=== PATIENT | female | born 1975 | race Caucasian/White ===

== ENCOUNTER 2020-06-20 18:56 | Emergency (ER) | payer BC, MEDICAID ==
[2020-06-20 19:09] VITALS: O2SAT 100
[2020-06-20] MEDS ORDERED: Sodium Chloride 0.9% 1000 ML 1,000 ML IV STA (19:09)
[2020-06-20] MEDS ORDERED: MORPHINE SULFATE 4 MG INJ IV ONE (19:09)
[2020-06-20] MEDS ORDERED: Zofran 4 MG/2 ML VIAL IV ONE (19:09)
[2020-06-20] MEDS ORDERED: Adacel Vial IM ONE ×2 (19:09→19:24)
[2020-06-20] MEDS ORDERED: CLINDAMYCIN-D5W 900 MG/50 ML*** 900 MG/50 ML BAG IV STA (19:18)
[2020-06-20] MEDS ORDERED: MORPHINE SULFATE 4 MG INJ ONE (19:23)
[2020-06-20] MEDS ORDERED: Zofran 4 MG/2 ML VIAL ONE (19:23)
[2020-06-20] MEDS ORDERED: Sodium Chloride 0.9% 1000 ML 1,000 ML ONE (19:24)
[2020-06-20] MEDS ORDERED: CLINDAMYCIN-D5W 900 MG/50 ML*** 900 MG/50 ML BAG IV ONE (19:24)
[2020-06-20] MEDS ORDERED: VANCOMYCIN 1 GRAM/200 ML BAG 1 GM/200 ML PIGGYBACK IV SCH (19:30)
[2020-06-20 19:49] LABS: Absolute Neutrophil Ct (ANC) 4.22 (1.4-6.9); BASOPHIL % 0.8 % (0.0-0.4); Basophil (Absolute #) 0.06 (0-0.4); Eosinophil % 6.1 % (0.00-5.0); Eosinophil (Absolute #) 0.49 (0-0.5); Hematocrit 38.3 % (35-47); Hemoglobin 12.4 gm/dl (12.0-16.0); Lymphocyte (Absolute #) 2.62 (1.0-4.6); Lymphocytes % 32.8 % (24.0-44.0); Mean Cell Volume 96.7 fl (78-100); Mean Corpuscular Hemoglobin 31.3 pg (26-32); Mean Corpuscular Hgb Concent. 32.4 g/dl (32-36); Mean Platelet Volume 10.1 fl (7.5-11.0); Monocyte (Absolute #) 0.59 (0.0-1.3); Monocytes % 7.4 % (0.0-12.0); Neutrophil % 52.9 % (36.0-66.0); Platelet Count 377 K/mm3 (150-450); Red Blood Count 3.96 M/mm3 (4.1-5.4); Red Cell Distribution Width 12.7 % (11.5-14.0)
[2020-06-20 19:51] LABS: ALBUMIN 4.5 g/dL (3.5-5.0); ALKALINE PHOSPHATASE 85 U/L (38-126); BLOOD UREA NITROGEN 14 mg/dL (7-17); CHLORIDE 101 mmol/L (98-107); Calcium 9.8 mg/dL (8.4-10.2); Carbon Dioxide 29 mmol/L (22-30); Creatinine 1 0.79 mg/dL (0.52-1.04); EST GLOMERULAR FILTRATION RATE > 60.0 ML/MIN; Glucose 104 mg/dL (74-106); Potassium 4.3 mmol/L (3.5-5.1); SGOT/AST 37 U/L (14-36); SGPT/ALT 30 U/L (0-35); SODIUM 138 mmol/L (137-145); Total Protein 8.1 g/dL (6.3-8.2)
[2020-06-20] MEDS ORDERED: VANCOMYCIN 1 GRAM/200 ML BAG 1 GM/200 ML PIGGYBACK IV ONE (20:48)
[2020-06-20 22:14] LABS: Appearance CLEAR (CLEAR); Bilirubin NEGATIVE (NEGATIVE); Blood NEGATIVE Ery/ul (0-5); Epithelial Cells RARE /HPF (FEW); Glucose NEGATIVE (NEGATIVE); Ketones NEGATIVE (NEGATIVE); Leukocyte Esterase NEGATIVE (NEGATIVE); Mucus SLIGHT /HPF (NEGATIVE); Nitrite NEGATIVE (NEGATIVE); Protein,Urine Dip NEGATIVE (Negative); RBC 0-2 /HPF (0-2); Urobilinogen NEGATIVE mg/dL (0-1)
--- NOTE | 2020-06-20 22:17 | ERPHSYRPT ---
- History of Present Illness Time Seen by Provider: 06/20/20 19:15 Source: patient Exam Limitations: no limitations Patient Subjective Stated Complaint: pt c/o pain to lt lower leg Triage Nursing Assessment: pt c/o pain to lt lower ext, red, warm to touch, open area 1.2cm L x 1.6 cm W 0.1 cm D, wound is not draining, edematous. Pt was mowing and cleaning up an area by a barn, and got cocka burrs in her pants and leg. Physician History: Patient is a 44-year-old female who presents with a complaint of severe pain in her left leg lower leg which occurred while she was working in the yard and some cocklebur's apparently got down in her socks and caused some lesions. This started approximately 3 days ago she is crying and nauseated with the pain from these lesions the largest lesion measures 1.2 x 1.6 the other lesion is circular and measures a diameter of 1.2. There is an area of erythema over the medial aspect of the proximal ankle and lower leg. Pain seems out of proportion to physical findings. Patient does have a history of substance abuse. Her inspect is negative at present. Method of Injury: other (She was stuck by cocklebur's.) Occurred: days ago (3) Quality: constant, burning, throbbing Severity of Pain-Max: moderate Severity of Pain-Current: moderate Lower Extremities Pain: leg: left (Ulcerative lesions and cellulitis noted) Modifying Factors: Improves With: pain medication Associated Symptoms: snapping sensation Allergies/Adverse Reactions: penicillin G Allergy (Verified 06/20/20 19:19) Swelling Sulfa (Sulfonamide Antibiotics) [Sulfa(Sulfonamide Antibiotics)] Allergy (Verified 06/20/20 19:19) Swelling Hx Tetanus, Diphtheria Vaccination/Date Given: No Hx Influenza Vaccination/Date Given: No Hx Pneumococcal Vaccination/Date Given: No Immunizations Up to Date: No Travel Risk - International Travel Have you traveled outside of the country in past 3 weeks: No - Coronavirus Screening Are you exhibiting any of the following symptoms?: No Close contact with a COVID-19 positive Pt in past 14-21 Days: No - Review of Systems Constitutional: No Fever, No Chills Eyes: No Symptoms Ears, Nose, & Throat: No Symptoms Respiratory: No Cough, No Dyspnea Cardiac: No Chest Pain, No Edema, No Syncope Abdominal/Gastrointestinal: No Abdominal Pain, No Nausea, No Vomiting, No Diarrhea Genitourinary Symptoms: No Dysuria Musculoskeletal: No Back Pain, No Neck Pain Skin: Cellulitis, Pruritis, Skin Lesions, No Rash Neurological: No Dizziness, No Focal Weakness, No Sensory Changes Psychological: No Symptoms Endocrine: No Symptoms All Other Systems: Reviewed and Negative - Past Medical History Pertinent Past Medical History: Yes Neurological History: Seizures ENT History: No Pertinent History Cardiac History: No Pertinent History Respiratory History: No Pertinent History Endocrine Medical History: No Pertinent History Musculoskeletal History: No Pertinent History GI Medical History: Gallbladder Disease History: Other Psycho-Social History: No Pertinent History Female Reproductive Disorders: Endometriosis, Other Other Medical History: 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 stretched bladded and biopsied it - Social History Smoking Status: Current every day smoker How long have you smoked: 15 yrs Exposure to second hand smoke: No Drug Use: none Patient Lives Alone: No - Female History Hx Now: No - Nursing Vital Signs Nursing Vital Signs: Initial Vital Signs Temperature 98.5 F 06/20/20 19:07 Pulse Rate 114 H 06/20/20 19:07 Respiratory Rate 18 06/20/20 19:07 Blood Pressure 169/99 06/20/20 19:07 O2 Sat by Pulse Oximetry 100 06/20/20 19:07 Pain Scale Pain Intensity 6 - Physical Exam General Appearance: alert Eyes, Ears, Nose, Throat Exam: moist mucous membranes Neck Exam: non-tender, supple Cardiovascular/Respiratory Exam: chest non-tender, normal breath sounds, regular rate/rhythm, no respiratory distress Gastrointestinal/Abdominal Exam: non-tender, guarding Back Exam: normal inspection, No vertebral tenderness Legs Exam: left leg: bone tenderness, limited range of motion, pain, soft tissue tenderness, swelling, other (Heat and erythema consistent with cellulitis) Neuro/Tendon Exam: normal sensation, normal motor functions Mental Status Exam: alert, oriented x 3, cooperative Skin Exam: normal color, warm, dry SpO2 Interpretation: normal SpO2: 100 O2 Delivery: Room Air - Course Nursing assessment & vital signs reviewed: Yes - Radiology Exams Left Lower Leg X-ray Interpretation: Interpreted by me, Negative (No fracture no dislocation no foreign body and no soft tissue gas) Ordered Tests: Active Orders 24 hr Category Date Time Status LOWER LEG Stat Exams 06/20/20 19:16 Taken BLOOD CULTURE Stat Lab 06/20/20 20:18 Received CBC W DIFF Stat Lab 06/20/20 19:30 Completed CMP Stat Lab 06/20/20 19:30 Completed CULTURE,WOUND Stat Lab 06/20/20 20:00 Received Lactic Acid Stat Lab 06/20/20 19:50 Completed UA W/RFX UR CULTURE Stat Lab 06/20/20 22:00 Completed Urine Triage Profile Stat Lab 06/20/20 22:00 Completed Medication Summary Generic Name Dose Route Start Last Admin Trade Name Freq PRN Reason Stop Dose Admin Vancomycin HCl 1 gm in 200 mls @ 125 mls/hr 06/20/20 19:30 06/20/20 20:54 Vancomycin 1 Gram/200 Ml Bag IV 07/20/20 19:29 125 ml/hr Q12H VAIBHAV 125 mls/hr Administration Discontinued Medications Generic Name Dose Route Start Last Admin Trade Name Freq PRN Reason Stop Dose Admin Diphtheria/Tetanus/Acell Pertussis 0.5 ml 06/20/20 19:09 06/20/20 19:33 Adacel Vial IM 06/20/20 19:10 0.5 ml .ONCE ONE Administration Diphtheria/Tetanus/Acell Pertussis Confirm 06/20/20 19:24 Adacel Vial Administered 06/20/20 19:25 Dose 0.5 ml IM .STK-MED ONE Sodium Chloride 1,000 mls @ 999 mls/hr 06/20/20 19:09 06/20/20 19:32 Sodium Chloride 0.9% 1000 Ml IV 06/20/20 20:09 999 mls/hr .Q1H1M STA Administration Clindamycin HCl/Dextrose 900 mg in 50 mls @ 100 mls/hr 06/20/20 19:18 06/20/20 20:21 Clindamycin-D5w 900 Mg/50 Ml IV 06/20/20 19:47 100 ml/hr STAT STA 100 mls/hr Administration Clindamycin HCl/Dextrose Confirm 06/20/20 19:24 Clindamycin-D5w 900 Mg/50 Ml Administered 06/20/20 19:25 Dose 900 mg in 50 mls @ ud IV .STK-MED ONE Sodium Chloride Confirm 06/20/20 19:24 Sodium Chloride 0.9% 1000 Ml Administered 06/20/20 19:25 Dose 1,000 mls @ ud .ROUTE .STK-MED ONE Morphine Sulfate 4 mg 06/20/20 19:09 06/20/20 19:32 Morphine Sulfate 4 Mg Inj IV 06/20/20 19:10 4 mg STAT ONE Administration Morphine Sulfate Confirm 06/20/20 19:23 Morphine Sulfate 4 Mg Inj Administered 06/20/20 19:24 Dose 4 mg .ROUTE .STK-MED ONE Ondansetron HCl 4 mg 06/20/20 19:09 06/20/20 19:32 Zofran 4 Mg/2 Ml Vial IV 06/20/20 19:10 4 mg STAT ONE Administration Ondansetron HCl Confirm 06/20/20 19:23 Zofran 4 Mg/2 Ml Vial Administered 06/20/20 19:24 Dose 4 mg .ROUTE .STK-MED ONE Lab/Rad Data: Laboratory Result Diagrams 06/20/20 19:30 06/20/20 19:30 Laboratory Results 06/20/20 06/20/20 06/20/20 Range/Units 22:00 22:00 19:50 WBC (4.0-10.5) K/mm3 RBC (4.1-5.4) M/mm3 Hgb (12.0-16.0) gm/dl Hct (35-47) % MCV (78-100) fl MCH (26-32) pg MCHC (32-36) g/dl RDW (11.5-14.0) % Plt Count (150-450) K/mm3 MPV (7.5-11.0) fl Gran % (36.0-66.0) % Eos # (Auto) (0-0.5) Absolute Lymphs (auto) (1.0-4.6) Absolute Monos (auto) (0.0-1.3) Lymphocytes % (24.0-44.0) % Monocytes % (0.0-12.0) % Eosinophils % (0.00-5.0) % Basophils % (0.0-0.4) % Absolute Granulocytes (1.4-6.9) Basophils # (0-0.4) Sodium (137-145) mmol/L Potassium (3.5-5.1) mmol/L Chloride (98-107) mmol/L Carbon Dioxide (22-30) mmol/L Anion Gap (5-15) MEQ/L BUN (7-17) mg/dL Creatinine (0.52-1.04) mg/dL Estimated GFR ML/MIN Glucose (74-106) mg/dL Lactic Acid 1.4 (0.4-2.0) Calcium (8.4-10.2) mg/dL Total Bilirubin (0.2-1.3) mg/dL AST (14-36) U/L ALT (0-35) U/L Alkaline Phosphatase (38-126) U/L Serum Total Protein (6.3-8.2) g/dL Albumin (3.5-5.0) g/dL Urine Color YELLOW (YELLOW) Urine Appearance CLEAR (CLEAR) Urine pH 7.0 (5-6) Ur Specific [place] 1.020 (1.005-1.025) Urine Protein NEGATIVE (Negative) Urine Ketones NEGATIVE (NEGATIVE) Urine Blood NEGATIVE (0-5) [place]/ul Urine Nitrite NEGATIVE (NEGATIVE) Urine Bilirubin NEGATIVE (NEGATIVE) Urine Urobilinogen NEGATIVE (0-1) mg/dL Ur Leukocyte Esterase NEGATIVE (NEGATIVE) Urine WBC (Auto) NONE (0-5) /HPF Urine RBC (Auto) 0-2 (0-2) /HPF U Epithel Cells (Auto) RARE (FEW) /HPF Urine Bacteria (Auto) NONE SEEN (NEGATIVE) /HPF Urine Mucus (Auto) SLIGHT (NEGATIVE) /HPF Urine Culture Reflexed NO (NO) Urine Glucose NEGATIVE (NEGATIVE) mg/dL Urine Opiates Level POSITIVE (NEGATIVE) Ur Methadone NEGATIVE (NEGATIVE) Urine Barbiturates NEGATIVE (NEGATIVE) Ur Phencyclidine (PCP) NEGATIVE (NEGATIVE) Urine Amphetamine NEGATIVE (NEGATIVE) U Benzodiazepine Level NEGATIVE (NEGATIVE) Urine Cocaine NEGATIVE (NEGATIVE) Urine Marijuana (THC) NEGATIVE (NEGATIVE) 06/20/20 06/20/20 Range/Units 19:30 19:30 WBC 8.0 (4.0-10.5) K/mm3 RBC 3.96 L (4.1-5.4) M/mm3 Hgb 12.4 (12.0-16.0) gm/dl Hct 38.3 (35-47) % MCV 96.7 (78-100) fl MCH 31.3 (26-32) pg MCHC 32.4 (32-36) g/dl RDW 12.7 (11.5-14.0) % Plt Count 377 (150-450) K/mm3 MPV 10.1 (7.5-11.0) fl Gran % 52.9 (36.0-66.0) % Eos # (Auto) 0.49 (0-0.5) Absolute Lymphs (auto) 2.62 (1.0-4.6) Absolute Monos (auto) 0.59 (0.0-1.3) Lymphocytes % 32.8 (24.0-44.0) % Monocytes % 7.4 (0.0-12.0) % Eosinophils % 6.1 H (0.00-5.0) % Basophils % 0.8 (0.0-0.4) % Absolute Granulocytes 4.22 (1.4-6.9) Basophils # 0.06 (0-0.4) Sodium 138 (137-145) mmol/L Potassium 4.3 (3.5-5.1) mmol/L Chloride 101 (98-107) mmol/L Carbon Dioxide 29 (22-30) mmol/L Anion Gap 11.0 (5-15) MEQ/L BUN 14 (7-17) mg/dL Creatinine 0.79 (0.52-1.04) mg/dL Estimated GFR > 60.0 ML/MIN Glucose 104 (74-106) mg/dL Lactic Acid (0.4-2.0) Calcium 9.8 (8.4-10.2) mg/dL Total Bilirubin 0.40 (0.2-1.3) mg/dL AST 37 H (14-36) U/L ALT 30 (0-35) U/L Alkaline Phosphatase 85 (38-126) U/L Serum Total Protein 8.1 (6.3-8.2) g/dL Albumin 4.5 (3.5-5.0) g/dL Urine Color (YELLOW) Urine Appearance (CLEAR) Urine pH (5-6) Ur Specific [place] (1.005-1.025) Urine Protein (Negative) Urine Ketones (NEGATIVE) Urine Blood (0-5) Mingo/ul Urine Nitrite (NEGATIVE) Urine Bilirubin (NEGATIVE) Urine Urobilinogen (0-1) mg/dL Ur Leukocyte Esterase (NEGATIVE) Urine WBC (Auto) (0-5) /HPF Urine RBC (Auto) (0-2) /HPF U Epithel Cells (Auto) (FEW) /HPF Urine Bacteria (Auto) (NEGATIVE) /HPF Urine Mucus (Auto) (NEGATIVE) /HPF Urine Culture Reflexed (NO) Urine Glucose (NEGATIVE) mg/dL Urine Opiates Level (NEGATIVE) Ur Methadone (NEGATIVE) Urine Barbiturates (NEGATIVE) Ur Phencyclidine (PCP) (NEGATIVE) Urine Amphetamine (NEGATIVE) U Benzodiazepine Level (NEGATIVE) Urine Cocaine (NEGATIVE) Urine Marijuana (THC) (NEGATIVE) - Progress Progress: improved Progress Note: 06/20/20 22:33 Because pain seemed out of proportion to physical findings early necrotizing fasciitis was entertained. However there is no soft tissue gas noted on the x- rays, the pain was relieved by morphine, and the patient's Lenick score was less than 6. Counseled pt/family regarding: lab results, diagnosis, need for follow-up - Departure Departure Disposition: Home Clinical Impression: Cellulitis Condition: Stable Critical Care Time: No Referrals: DOCTOR,NO FAMILY [Primary Care Provider] - Prescriptions: Hydrocodone/APAP 5-325 Tab^^^ [[place] 5-325 Tablet^^^] 1 tab PO Q6HPRN PRN #10 tablet MDD 6 PRN Reason: Pain clindamycin HCL [Cleocin HCl] 300 mg PO TID 10 Days #30 capsule Doxycycline Hyclate 100 mg [Vibramycin 100 MG] 100 mg PO BID 10 Days #20 tab
[2020-06-20 22:18] LABS: Bacteria NONE SEEN /HPF (NEGATIVE)
[2020-06-20 22:28] LABS: Amphetamine,Urine NEGATIVE (NEGATIVE); Barbiturate,Urine NEGATIVE (NEGATIVE); Benzodiazepine,Urine NEGATIVE (NEGATIVE); Cocaine,Urine NEGATIVE (NEGATIVE); Methadone,Urine NEGATIVE (NEGATIVE); Opiate,Urine POSITIVE (NEGATIVE); PCP,Urine NEGATIVE (NEGATIVE); THC,Urine NEGATIVE (NEGATIVE)
[2020-06-20 22:49] VITALS: BP 149/76; PULSE 89
[2020-06-20] MEDS ORDERED: NORCO 5/325 MG PO ONE (22:51)
[2020-06-20] MEDS ORDERED: NORCO 5/325 MG ONE (22:51)
--- NOTE | 2020-06-21 08:34 | XRAY ---
Indication: Pain following injury. Distal wound. Comparison: None 2 view left lower leg obtained. No bony, articular, or soft tissue abnormalities.
== END 2020-06-20 22:57 | disposition home or self-care (01) ==
LOC: ED 18:56
DX: L03.116 Cellulitis of left lower limb (principal); M79.662 Pain in left lower leg; B08.3 Erythema infectiosum [fifth disease]; W45.8XXA Other foreign body or object entering through skin, initial encounter; Y93.H9 Activity, other involving exterior property and land maintenance, building and construction; Y92.89 Other specified places as the place of occurrence of the external cause
CPT/HCPCS: 36000; 36415; 73590; 80053; 80307; 81001; 83605; 85025; 86140; 87040; 87070; 90471; 90715; 96365; 96367; 96374; 96375; 99284; J2270; J2405; A9270-GY; J3370

== ENCOUNTER 2020-12-12 14:49 | Emergency (ER) | payer SELFPAY ==
[2020-12-12 15:03] VITALS: O2SAT 99
[2020-12-12] MEDS ORDERED: MORPHINE SULFATE 4 MG INJ IM ONE (15:11)
[2020-12-12] MEDS ORDERED: MORPHINE SULFATE 4 MG INJ ONE (15:14)
--- NOTE | 2020-12-12 15:27 | ERPHSYRPT ---
- History of Present Illness Time Seen by Provider: 12/12/20 15:04 Source: patient Exam Limitations: no limitations Patient Subjective Stated Complaint: Pt was pulling the starter of a generator and it pulled her forward and she feels like she dislocated her right shoulder and her right hand is going numb Triage Nursing Assessment: Pt was brought to the ER by her mother, tachycardic, rates pain 8/10, right shoulder pain, right hand numb, denies any other injuries, pulses normal, cap refill normal Physician History: 45 years old female presented in the ER with chief complaint of right shoulder pain. Patient reports she was bowling return on a generator which pulled her forward and give us thirst and heard a popping/snapping sound in the right shoulder. This happened prior to arrival and is complaining of sharp shooting moderate to severe intensity pain with radiation to the whole right upper extremity with some tingling sensation in the hand. No difficulty movements of elbow wrist or hand. Patient has limited range of motion of the right shoulder. Occurred: just prior to arrival Quality: constant Severity of Pain-Max: severe Severity of Pain-Current: severe Extremities Pain Location: shoulder: right Modifying Factors: Improves With: immobilization. Worsens With: movement Allergies/Adverse Reactions: codeine Allergy (Severe, Verified 12/12/20 15:04) anaphalactic penicillin G Allergy (Verified 12/12/20 15:03) Swelling Sulfa (Sulfonamide Antibiotics) [Sulfa(Sulfonamide Antibiotics)] Allergy (Verified 12/12/20 15:03) Swelling Hx Tetanus, Diphtheria Vaccination/Date Given: No Hx Influenza Vaccination/Date Given: No Hx Pneumococcal Vaccination/Date Given: No Travel Risk - International Travel Have you traveled outside of the country in past 3 weeks: No - Coronavirus Screening Are you exhibiting any of the following symptoms?: No Close contact with a COVID-19 positive Pt in past 14-21 Days: No - Review of Systems Constitutional: No Symptoms Eyes: No Symptoms Ears, Nose, & Throat: No Symptoms Respiratory: No Symptoms Cardiac: No Symptoms Abdominal/Gastrointestinal: No Symptoms Genitourinary Symptoms: No Symptoms Musculoskeletal: Injury, Joint Pain Skin: No Symptoms Neurological: No Symptoms Psychological: No Symptoms Endocrine: No Symptoms Hematologic/Lymphatic: No Symptoms Immunological/Allergic: No Symptoms - Past Medical History Pertinent Past Medical History: Yes Neurological History: Seizures ENT History: No Pertinent History Cardiac History: No Pertinent History Respiratory History: No Pertinent History Endocrine Medical History: No Pertinent History Musculoskeletal History: No Pertinent History GI Medical History: Gallbladder Disease History: Other Psycho-Social History: No Pertinent History Female Reproductive Disorders: Endometriosis, Other Other Medical History: 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 stretched bladded and biopsied it - Social History Smoking Status: Current every day smoker How long have you smoked: 15 yrs Exposure to second hand smoke: Yes Drug Use: none Patient Lives Alone: No - Female History Hx Last Menstrual Period: 11/10/2020 Hx Now: No - Nursing Vital Signs Nursing Vital Signs: Initial Vital Signs Temperature 98.3 F 12/12/20 14:55 Pulse Rate 105 H 12/12/20 14:55 Blood Pressure 138/91 12/12/20 14:55 O2 Sat by Pulse Oximetry 99 12/12/20 14:55 Pain Scale Pain Intensity 8 - Physical Exam General Appearance: no apparent distress, alert Eyes, Ears, Nose, Throat Exam: normal ENT inspection Neck Exam: normal inspection, non-tender, supple, full range of motion Cardiovascular/Respiratory Exam: chest non-tender, normal breath sounds Back Exam: normal inspection, normal range of motion Shoulder Exam: normal inspection, bone tenderness, limited ROM (Right shoulder), pain, soft tissue tenderness Elbow/Forearm Exam: normal inspection, non-tender, no evidence of injury, normal ROM Wrist Exam: normal inspection, non-tender, no evidence of injury, normal ROM Hand Exam: normal inspection, non-tender, no evidence of injury Neuro/Tendon Exam: normal sensation, normal motor functions Mental Status Exam: alert, oriented x 3, cooperative Skin Exam: normal color SpO2 Interpretation: normal SpO2: 99 O2 Delivery: Room Air Ordered Tests: Active Orders 24 hr Category Date Time Status SHOULDER Stat Exams 12/12/20 15:32 Taken Medication Summary Discontinued Medications Generic Name Dose Route Start Last Admin Trade Name Freq PRN Reason Stop Dose Admin Morphine Sulfate 4 mg 12/12/20 15:11 12/12/20 15:17 Morphine Sulfate 4 Mg Inj IM 12/12/20 15:12 4 mg STAT ONE Administration Morphine Sulfate Confirm 12/12/20 15:14 Morphine Sulfate 4 Mg Inj Administered 12/12/20 15:15 Dose 4 mg .ROUTE .STK-MED ONE - Progress Progress: improved, pain not gone completely Progress Note: 12/12/20 she is given pain medication for symptomatic relief. X-rays ruled out fracture dislocation. I believe patient has ligamentous injury/rotator cuff tear. Placed in sling, pain medication and outpatient Ortho follow-up. Counseled pt/family regarding: diagnosis, need for follow-up, rad results - Departure Departure Disposition: Home Clinical Impression: Acute shoulder pain Qualifiers: Laterality: right Qualified Code(s): M25.511 - Pain in right shoulder Condition: Stable Critical Care Time: No Referrals: DOCTOR,NO FAMILY [Primary Care Provider] - SHASHANK WARD MD [ACTIVE STAFF] - Follow Up with PCP/3 days BR[facility]OWERS NP [NON-STAFF PHY W/O PRIVILEGES] - (Tomorrow for reevaluation) Instructions: Shoulder Sprain (DC) Additional Instructions: Take pain medications as needed. Follow-up with Ortho clinic/primary care for reevaluation. Prescriptions: Ibuprofen 600 mg PO Q6HPRN PRN 10 Days #20 tablet PRN Reason: Pain Hydrocodone/APAP 5/325 [[place] 5/325 mg] 1 each PO Q6H PRN PRN 3 Days #12 tablet MDD 4 PRN Reason: Pain
[2020-12-12 16:00] VITALS: BP 128/82; PULSE 88
--- NOTE | 2020-12-12 19:15 | XRAY ---
Indication: Strain injury. Comparison: None 3 view right shoulder obtained. No bony, articular, or soft tissue abnormalities.
== END 2020-12-12 16:05 | disposition home or self-care (01) ==
LOC: ED 14:49
DX: M25.511 Pain in right shoulder (principal); R20.0 Anesthesia of skin; F17.210 Nicotine dependence, cigarettes, uncomplicated
CPT/HCPCS: 73030; 96372; 99284; J2270

== ENCOUNTER 2020-12-23 14:15 | Emergency (ER) | payer MEDICAID ==
--- NOTE | 2020-12-23 14:27 | ERPHSYRPT ---
- History of Present Illness Time Seen by Provider: 12/23/20 14:27 Source: patient Exam Limitations: no limitations Physician History: This is a 45-year-old white female who presents with neck pain that began yesterday. She had right shoulder pain in November 2020 and an x-ray was performed at that time and there was no acute fracture or dislocation present. She was sent to the orthopedic clinic and was evaluated on 12/20/2020. A cervical spine x-ray was performed and this was normal without evidence of fracture or subluxation. Yesterday, according to the patient, she was lifting two 5 gallon gas cans and began having neck pain. The patient had a cervical spine MRI scheduled today at 1:00 but did not go to that appointment. Patient stated that she took her hydrocodone and prednisone this morning at approximately 830 or 9:00 AM. Patient has never seen a neurologist in the past. Timing/Duration: yesterday Method of Injury: lifting Quality: sharp Back Pain Location: C-spine Severity of Pain-Max: moderate Severity of Pain-Current: moderate Modifying Factors: Improves With: movement Associated Symptoms: other (Numbness in arms) Previous symptoms: no prior history, recently seen, recently treated Allergies/Adverse Reactions: codeine Allergy (Severe, Verified 12/23/20 14:20) anaphalactic penicillin G Allergy (Verified 12/23/20 14:20) Swelling Sulfa (Sulfonamide Antibiotics) [Sulfa(Sulfonamide Antibiotics)] Allergy (Verified 12/23/20 14:20) Swelling Home Medications: Hydrocodone/Acetaminophen [Hydrocodone-Acetamin 10-325 mg] 1 tab PO Q6H PRN PRN 12/23/20 [History] Prednisone 20 mg [Deltasone 20 mg] 1 tab PO BID 12/23/20 [History] Hx Tetanus, Diphtheria Vaccination/Date Given: No Hx Influenza Vaccination/Date Given: No Hx Pneumococcal Vaccination/Date Given: No Travel Risk - International Travel Have you traveled outside of the country in past 3 weeks: No - Coronavirus Screening Are you exhibiting any of the following symptoms?: No Close contact with a COVID-19 positive Pt in past 14-21 Days: No - Review of Systems Constitutional: No Symptoms Eyes: No Symptoms Ears, Nose, & Throat: No Symptoms Respiratory: No Symptoms Cardiac: No Symptoms Abdominal/Gastrointestinal: No Symptoms Genitourinary Symptoms: No Symptoms Musculoskeletal: Other (Cervical spine pain) Skin: No Symptoms Neurological: Other (Numbness right upper extremity) Psychological: No Symptoms Endocrine: No Symptoms Hematologic/Lymphatic: No Symptoms Immunological/Allergic: No Symptoms All Other Systems: Reviewed and Negative - Past Medical History Pertinent Past Medical History: Yes Neurological History: Seizures ENT History: No Pertinent History Cardiac History: No Pertinent History Respiratory History: No Pertinent History Endocrine Medical History: No Pertinent History Musculoskeletal History: No Pertinent History GI Medical History: Gallbladder Disease History: Other Psycho-Social History: No Pertinent History Female Reproductive Disorders: Endometriosis, Other Other Medical History: 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 stretched bladded and biopsied it - Social History Smoking Status: Current every day smoker How long have you smoked: 15 yrs Exposure to second hand smoke: Yes Drug Use: none Patient Lives Alone: No - Nursing Vital Signs Nursing Vital Signs: Initial Vital Signs Temperature 98.0 F 12/23/20 14:23 Pulse Rate 127 H 12/23/20 14:23 Respiratory Rate 20 12/23/20 14:23 Blood Pressure 165/114 12/23/20 14:23 O2 Sat by Pulse Oximetry 98 12/23/20 14:23 Pain Scale Pain Intensity 10 - Physical Exam General Appearance: no apparent distress, alert, anxiety Eye Exam: PERRL/EOMI, eyes nml inspection Ears, Nose, Throat Exam: normal ENT inspection, moist mucous membranes Neck Exam: other (Patient arrived with neck pain. A cervical collar was placed here in the emergency department) Respiratory Exam: airway intact, No chest tenderness, No respiratory distress Cardiovascular Exam: tachycardia Gastrointestinal Exam: No tenderness Pelvic Exam: not done Rectal Exam: not done Back Exam: normal inspection, normal range of motion, No CVA tenderness Extremity Exam: normal inspection, normal range of motion, pelvis stable Neurologic Exam: alert, oriented x 3, cooperative, pattern drafter II-XII nml as tested, normal mood/affect, nml cerebellar function, nml station & gait, sensation nml Skin Exam: normal color, warm, dry Lymphatic Exam: No adenopathy SpO2 Interpretation: normal O2 Delivery: Room Air Ordered Tests: Active Orders 24 hr Category Date Time Status Cervical Collar Application STAT Care 12/23/20 14:52 Active IV Insertion STAT Care 12/23/20 14:52 Active CERVICAL SPINE WO CONTRAST [CT] Stat Exams 12/23/20 14:44 Completed - Progress Progress: improved, pain not gone completely, re-examined Progress Note: 12/23/20 15:18 CAT scan of the cervical spine without contrast reveals no acute fractures or subluxation. Counseled pt/family regarding: diagnosis, need for follow-up, rad results - Departure Departure Disposition: Home Clinical Impression: Cervical spine pain Condition: Stable Critical Care Time: No Referrals: DOCTOR,NO FAMILY [Primary Care Provider] - Additional Instructions: Take your medication as prescribed. Follow-up with orthopedic clinic for further management. Follow-up with neurologist for further management. Prescriptions: Cyclobenzaprine HCl 10 mg [Cyclobenzaprine 10 MG] 10 mg PO TID #10 tablet
--- NOTE | 2020-12-23 15:17 | XRAY ---
Indication: Right arm numbness following lifting gasoline 1 day earlier. Status post fall December 12, 2020. Multiple contiguous axial images obtained through the cervical spine. Sagittal and coronal reformatted images obtained. Comparison: Cervical radiograph December 20, 2020. Axial images negative for acute fracture, suspicious bony lesions, or spinal canal stenosis. Sagittal and coronal reformatted images demonstrates normal alignment with vertebral body heights/disc spaces maintained. No acute compression fracture, subluxation, or jumped facet. Normal appearing craniocervical junction. Visualized noncontrasted soft tissues including base of the brain and lung apices are unremarkable. Impression: Continued normal CT cervical spine.
[2020-12-23] MEDS ORDERED: solu-MEDROL 125 MG IV ONE (15:20)
[2020-12-23] MEDS ORDERED: NORCO 7.5/325 MG TAB PO ONE (15:21)
[2020-12-23] MEDS ORDERED: Ativan 2 MG/1 ML VIAL IV ONE (15:21)
[2020-12-23] MEDS ORDERED: Ativan 2 MG/1 ML VIAL ONE (15:26)
[2020-12-23] MEDS ORDERED: solu-MEDROL 125 MG ONE (15:26)
[2020-12-23 15:39] VITALS: BP 149/90; PULSE 93; O2SAT 97
== END 2020-12-23 15:52 | disposition home or self-care (01) ==
LOC: ED 14:15
DX: M54.2 Cervicalgia (principal); X50.0XXA Overexertion from strenuous movement or load, initial encounter; R00.0 Tachycardia, unspecified; F17.210 Nicotine dependence, cigarettes, uncomplicated
CPT/HCPCS: 36000; 72125; 96374; 96375; 99284; J2060; J2930; A9270-GY

== ENCOUNTER 2021-01-02 15:35 | Emergency (ER) | payer MEDICAID, OTHER ==
[2021-01-02] MEDS ORDERED: TORAdol 30 mg Injection IM ONE (16:07)
[2021-01-02] MEDS ORDERED: PERCOCET TABLET 5/325MG PO STA (16:07)
[2021-01-02] MEDS ORDERED: CLEOCIN 150 MG CAPSULE PO ONE (16:08)
--- NOTE | 2021-01-02 16:12 | ERPHSYRPT ---
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 This is been going on for the last 3 to 4 days with progressive worsening. No fever or chills reported. Does have follow-up appointment with dentist early next month. Timing/Duration: days (4) Severity: severe ENT Location: dental Prearrival Treatment: over the counter meds Allergies/Adverse Reactions: codeine Allergy (Severe, Verified 01/02/21 15:54) anaphalactic penicillin G Allergy (Verified 01/02/21 15:54) Swelling Sulfa (Sulfonamide Antibiotics) [Sulfa(Sulfonamide Antibiotics)] Allergy (Verified 01/02/21 15:54) Swelling Hx Tetanus, Diphtheria Vaccination/Date Given: No Hx Influenza Vaccination/Date Given: No Hx Pneumococcal Vaccination/Date Given: No - Review of Systems Constitutional: No Symptoms Eyes: No Symptoms Ears, Nose, & Throat: Mouth Pain, Mouth Swelling, Loose Teeth Respiratory: No Symptoms Cardiac: No Symptoms Abdominal/Gastrointestinal: No Symptoms Genitourinary Symptoms: No Symptoms Musculoskeletal: No Symptoms Skin: No Symptoms Neurological: No Symptoms Endocrine: No Symptoms Hematologic/Lymphatic: No Symptoms Immunological/Allergic: No Symptoms - Past Medical History Pertinent Past Medical History: Yes Neurological History: Seizures ENT History: No Pertinent History Cardiac History: No Pertinent History Respiratory History: No Pertinent History Endocrine Medical History: No Pertinent History Musculoskeletal History: No Pertinent History GI Medical History: Gallbladder Disease History: Other Psycho-Social History: No Pertinent History Female Reproductive Disorders: Endometriosis, Other Other Medical History: 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 stretched bladded and biopsied it - Social History Smoking Status: Current every day smoker How long have you smoked: 15 yrs Exposure to second hand smoke: Yes Drug Use: none Patient Lives Alone: No - Nursing Vital Signs Nursing Vital Signs: Initial Vital Signs Temperature 97.7 F 01/02/21 15:55 Pulse Rate 114 H 01/02/21 15:55 Respiratory Rate 19 01/02/21 15:55 Blood Pressure 130/78 01/02/21 15:55 O2 Sat by Pulse Oximetry 99 01/02/21 15:55 Pain Scale Pain Intensity 8 - Physical Exam General Appearance: no apparent distress, alert, anxiety Eye Exam: bilateral eye: normal inspection, PERRL, EOMI Ear Exam: bilateral ear: auricle normal, canal normal, TM normal Nasal Exam: normal inspection Throat Exam: normal, pharynx normal, dental tenderness (Multiple loose teeth with severe periodontal disease. Left anterior gum swelling upper and lower with no obvious fluctuation or discharge.), moist mucus membranes Neck Exam: normal inspection, non-tender, supple, full range of motion Cardiovascular/Respiratory Exam: normal breath sounds, no JVD, tachycardia Neurologic Exam: alert, oriented x 3, cooperative, garment liner II-XII nml as tested Skin Exam: normal color SpO2 Interpretation: normal O2 Delivery: Room Air Ordered Tests: Medication Summary Discontinued Medications Generic Name Dose Route Start Last Admin Trade Name Solitarioq PRN Reason Stop Dose Admin Clindamycin HCl 300 mg 01/02/21 16:08 01/02/21 16:19 Cleocin 150 Mg Capsule PO 01/02/21 16:09 300 mg STAT ONE Administration Clindamycin HCl Confirm 01/02/21 16:14 Cleocin 150 Mg Capsule Administered 01/02/21 16:15 Dose 300 mg .ROUTE .STK-MED ONE Ketorolac Tromethamine 30 mg 01/02/21 16:07 01/02/21 16:18 Toradol 30 Mg Injection IM 01/02/21 16:08 30 mg STAT ONE Administration Ketorolac Tromethamine Confirm 01/02/21 16:14 Toradol 30 Mg Injection Administered 01/02/21 16:15 Dose 30 mg .ROUTE .STK-MED ONE Oxycodone/Acetaminophen 2 tab 01/02/21 16:07 01/02/21 16:18 Percocet Tablet 5/325mg PO 01/02/21 16:08 2 tab STAT STA Administration Oxycodone/Acetaminophen Confirm 01/02/21 16:14 Percocet Tablet 5/325mg Administered 01/02/21 16:15 Dose 2 tab .ROUTE .STK-MED ONE - Progress Progress: improved Progress Note: 01/02/21 17:49 She is given symptomatic treatment for pain and started on clindamycin. Recommended dental follow-up. Does not have any abscess that needs to be drained immediately. Counseled pt/family regarding: diagnosis, need for follow-up - Departure Departure Disposition: Home Clinical Impression: Dental infection Condition: Stable Critical Care Time: No Referrals: DOCTOR,NO FAMILY [Primary Care Provider] - LASHAUN TADEO DDS [NON-STAFF PHY W/O PRIVILEGES] - (Call in the morning for appointment) Instructions: Tooth Abscess (DC) Additional Instructions: Take pain medications as needed. Follow-up with dentist for reevaluation and further management. Continue with antibiotics. Return to ER for any worsening pain swelling or discharge. Prescriptions: Hydrocodone/APAP 5/325 [[place] 5/325 mg] 1 each PO Q6H PRN PRN 2 Days #8 tablet MDD 4 PRN Reason: Pain Clindamycin HCl 150 mg [Cleocin 150 mg Capsule] 2 cap PO QID #56 capsule
[2021-01-02] MEDS ORDERED: TORAdol 30 mg Injection ONE (16:14)
[2021-01-02] MEDS ORDERED: PERCOCET TABLET 5/325MG ONE (16:14)
[2021-01-02] MEDS ORDERED: CLEOCIN 150 MG CAPSULE ONE (16:14)
[2021-01-02 16:28] VITALS: BP 125/86; PULSE 104; O2SAT 97
== END 2021-01-02 16:28 | disposition home or self-care (01) ==
LOC: ED 15:35
DX: K04.7 Periapical abscess without sinus (principal)
CPT/HCPCS: 96372; 99284; J1885; A9270-GY